=== PATIENT | female | born 1960 | race Caucasian/White ===

== ENCOUNTER 2020-07-24 10:27 | Observation (INO) | payer MEDICARE ==
[~2020-07-24] VITALS: Ht 162.6 cm; Wt 85.0 kg
--- NOTE | 2020-07-24 10:33 | NUR ---
TO ROOM 13 FOR TRIAGE
--- NOTE | 2020-07-24 11:19 | NUR ---
PATIENT RESTYING POC REVIEWED, CALL MC IN REACH
--- NOTE | 2020-07-24 11:20 | NUR ---
PATIENT AWARE OF NEED FOR URINE SAMPLE. UNABLE TO VOID AT THIS TIME.
[2020-07-24 11:21] LABS: HEMATOCRIT 43.4 % (37.0-47.0); HEMOGLOBIN 14.6 g/dl (12.0-16.0); IMMATURE GRANULOCYTES 0.4 % (0.0-5.0); MEAN CELL VOLUME 88.2 fL CALC (80.0-100.0); MEAN CORPUSCULAR HGB 29.7 pG CALC (26.0-32.0); MEAN CORPUSCULAR HGB CONC 33.6 g/dL CAL (32.0-36.0); NEUT# 7.35 thou/uL (2.00-7.15); RED BLOOD COUNT 4.92 mill/uL (4.20-5.60); RED CELL DISTRI WIDTH 12.9 % (11.5-15.5)
[2020-07-24 11:29] LABS: ALBUMIN 5.4 g/dL (3.2-5.0); ALKALINE PHOSPHATASE 103 u/l (38-126); ANION GAP 19 (6-22 (CALC)); BUN 24 mg/dL (8-23); BUN/CREATININE RATIO 23 (12-20 (CALC)); CARBON DIOXIDE 21 mmol/l (22-30); CHLORIDE 101 mmol/l (95-108); CREATININE 1.1 mg/dL (0.5-1.0); GFR 50 ML/MIN (>=60 (CALC)); GFR FOR AFR.AMER. > 60 ML/MIN (>=60 (CALC)); LIPASE 52 u/l (23-300); POTASSIUM 4.3 mmol/l (3.5-5.1); SGOT/AST 32 u/l (9-36); SODIUM 136 mmol/l (137-146)
[2020-07-24 11:33] LABS: BILIRUBIN, TOTAL 0.7 mg/dL (0.0-1.4); TOTAL PROTEIN 9.5 g/dL (6.3-8.2)
--- NOTE | 2020-07-24 11:45 | NUR ---
PATIENT STATES SHE IS FEELING BETTER. TO CT VIA STRETCHER.
[2020-07-24] MEDS ORDERED: LOSARTAN POTASS25 MG PO (11:48)
[2020-07-24 12:00] LABS: ACT PARTIAL THROMBO TIME 25.6 SECONDS (20.0-32.5); PROTHROMBIN TIME 10.5 SECONDS (9.0-12.5)
--- NOTE | 2020-07-24 12:35 | NUR ---
TO BR WITH ASSIST.
[2020-07-24 13:06] LABS: URINE BLOOD DIPSTICK NEGATIVE (NEGATIVE); URINE GLUCOSE - DIPSTICK NEGATIVE (NEGATIVE); URINE KETONE 15 mg/dL (NEGATIVE); URINE LEUK ESTERASE NEGATIVE (NEGATIVE); URINE NITRITE - DIPSTICK NEGATIVE (Negative); URINE PH 5.5 (4.5-8.0); URINE PROTEIN - DIPSTICK 100 mg/dL (NEG-TRACE); URINE UROBILINOGEN - DIPSTICK 0.2 E.U./dL (0.2)
[2020-07-24 13:07] LABS: URINE BILIRUBIN - DIPSTICK MODERATE (NEGATIVE)
[2020-07-24 13:08] LABS: URINE COLOR DK. YELLOW; URINE EPITHELIAL CELLS FEW EPI/hpf (0-FEW); URINE MUCUS MODERATE hpf (NONE-FEW)
--- NOTE | 2020-07-24 14:42 | NUR ---
DR TO BEDSIDE TO DISCUSS FINDINGS AND PLAN TO ADMIT.
--- NOTE | 2020-07-24 15:32 | NUR ---
PATIENT AWARE OF NEED TO BE ADMITTED. OPPORTUNITY FOR QUESTIONS.
--- NOTE | 2020-07-24 15:55 | NUR ---
REPORT REC FROM Tasia WANG RN
--- NOTE | 2020-07-24 15:58 | NUR ---
REPORT CALLED TO ANJUM GRIDER IN SBAR FORMAT.
[2020-07-24 16:04] VITALS: BP 141/63
--- NOTE | 2020-07-24 16:10 | NUR ---
TRANSFERRED SAFELY TO M/S VIA WC TO ROOM 277. IV INTACT.
--- NOTE | 2020-07-24 17:31 | NUR ---
INFORMED CONSENT FOR LAPAROSCOPIC CHOLECYSTECTOMY OBTAINED. PT VERBALIZED UNDERSTANDING. IVF @ 100 ML/HR TO RH #20 INITIATED. PT GIVEN MORPHINE 2 MG IV FOR ABD PAIN 01/05. CALL LIGHT LEFT WITHIN REACH.
--- NOTE | 2020-07-24 19:20 | NUR ---
PT IN BED WITH LIGHTS AND TV ON. REPORTS FEELING SLIGHTLY NAUSEOUS, BUT REPORTS THAT PAIN MEDICATION HELPED "FOR THE MOST PART." I OFFERED HER JUICE, BROTH AND EXPLAINED DIETS TO HER, SHE VERBALIZED UNDERSTANDING THAT SHE WILL GO NPO AT MIDNIGHT TO PREP FOR MORNING SURGERY. SHE DENIED WANTING ANYTHING TO EAT OR DRINK OTHER THAN WATER AT THIS TIME. I ENCOURAGED HER TO CALL IF SHE CHANGED HER MIND OR ANY OTHER NEEDS ARISE. WILL PLACE CALL FOR ANTI-NAUSEA MED ORDER TO PHYSICIAN.
--- NOTE | 2020-07-24 20:17 | NUR ---
IVF ADMINISTERED AT THIS TIME AND ASSESSMENT COMPLETED. V/S ASSESSED AT THIS TIME. CALL LIGHT AT SIDE AND PT INSTRUCTED TO CALL NEEDS ARISE.
[2020-07-24 21:48] VITALS: BP 107/68
--- NOTE | 2020-07-24 21:50 | NUR ---
ANGELES IN OR CALLED TO CHECK TO DISCUSS POSSIBILITY OF THE PT HAVING SURGERY TONIGHT. I TALKED WITH THE PT, SHE HAS ONLY BEEN DRINKING WATER AND LAST DRINK WAS APPROX.+-1HR PRIOR ACCORDING TO THE PT. I ASKED IF SHE WANTED TO HAVE THE SURGERY TONIGHT OR WAIT UNTIL SCHEDULED TIME IN THE MORNING, SHE REPLIED, "THE EARLIER THE BETTER." I INFORMED ANGELES OF THIS TIMEING/DIET INTAKE. HE STATED THAT THEY WOULD BE PROCEEDING WITH SURGERY IN APPROX 1HR. PT HAS BEEN INFORMED.
--- NOTE | 2020-07-24 22:12 | NUR ---
DR. RAJPUT IN TO SEE PT REGARDING PENDING SURGERY.
--- NOTE | 2020-07-24 22:17 | NUR ---
PT INFORMED THAT [employer] HAS APPROVED 1X FAMILY MEMBER TO SIT IN LOBBY OR WAITING ROOM DURING SURGERY IF SHE WANTED. SHE STATED THAT SHE HAS SPOKEN WITH HER AND THAT HE WILL BE STAYING HOME. I OFFERED TO CALL HIM AFTER SHE IS OUT OF SURGERY FOR HER, SHE AGREED AND GAVE ME HIS NAME AND NUMBER: SHRUTHI: [phone]
--- NOTE | 2020-07-24 22:28 | NUR ---
PT OFF MED SURG UNIT VIA STRETCHER ACCOMPANIED BY OR NURSE.
[2020-07-25] VITALS (8 sets, daily range): BP systolic 132–165; BP diastolic 72–89
--- NOTE | 2020-07-25 01:07 | NUR ---
PT ARRIVED TO MED SURG UNIT VIA STRETCHER ACCOMPANIED BY OR NURSE SANCHEZ. PT APPEARS TO BE IN STABLE CONDITION. REPORT RECIEVED AT THIS TIME. SCD'S PLACED, V/S ASSESSED STABLE.
--- NOTE | 2020-07-25 01:15 | NUR ---
PT SETTLED INTO THE BED, NO S/O DISTRESS NOTED. V/S ARE BEING ASSESSED Q15 MIN FOR THE FIRST HOUR PHYSICIAN ORDERS PROVIDE. PT ASKING FOR ICE CHIPS AT THIS TIME/PROVIDED.
--- NOTE | 2020-07-25 01:20 | NUR ---
ATTEMPTED TO CALL OF PT TO NOTIFY THAT SHE IS OUT OF SURGERY AND HAS RETURNED TO THE MED SURG UNIT IN STABLE AND GOOD CONDITION. I DID NOT RECEIVE AN ANSWER AND WAS UNABLE TO LEAVE A VOICEMAIL AT THIS TIME.
--- NOTE | 2020-07-25 02:00 | NUR ---
PT'S CALLED TO CHECK ON HER, I INFORMED HIM OF HER CONDITION PER PT'S REQUEST.
--- NOTE | 2020-07-25 02:14 | NUR ---
PT MEDICATED ORDERS PROVIDE FOR PAIN 5/10 ON PAIN SCALE. PT UP TO BSC AND BACK TO BED, NO DIFFICULTIES VOIDING. IVF RUNNING @125 TO 20 IN LAC/PATENT AND HEALTHY. ICE CHIPS AT BEDSIDE. PT DENIES NAUSEA AT THIS TIME. ENCOURAGED HER TO CALL NEEDS ARISE. CALL LIGHT AT SIDE.
--- NOTE | 2020-07-25 04:46 | NUR ---
PT SLEEPING SOUNDLY. SCD'S ARE ON, IVF RUNNING TO LAC/SITE APPEARS HEALTHY. NO S/O DISTRESS NOTED.
--- NOTE | 2020-07-25 06:10 | NUR ---
PT WAS SLEEPING, AWOKE TO MY VOICE. MEDICATED ORDERS PROVIDE. INCISIONS CDI, REPORTS PAIN MORE IN HER BACK FROM LAYING IN BED FOR A WEEK 4/10 ON PAIN SCALE.
--- NOTE | 2020-07-25 08:00 | NUR ---
PATIENT AWAKE AND ALERT STATES SHE FEELS WELL WITH MINIMAL PAIN
[2020-07-25 09:58] LABS: IMMATURE GRANULOCYTES 0.3 % (0.0-5.0); MEAN CELL VOLUME 91.3 fL CALC (80.0-100.0); MEAN CORPUSCULAR HGB 29.9 pG CALC (26.0-32.0); MEAN CORPUSCULAR HGB CONC 32.8 g/dL CAL (32.0-36.0); NEUT# 9.69 thou/uL (2.00-7.15); RED BLOOD COUNT 3.91 mill/uL (4.20-5.60); RED CELL DISTRI WIDTH 12.8 % (11.5-15.5)
[2020-07-25 10:01] LABS: HEMATOCRIT 35.7 % (37.0-47.0); HEMOGLOBIN 11.7 g/dl (12.0-16.0)
[2020-07-25 10:15] LABS: ALBUMIN 4.4 g/dL (3.2-5.0); ALKALINE PHOSPHATASE 73 u/l (38-126); ANION GAP 14 (6-22 (CALC)); BILIRUBIN, TOTAL 0.5 mg/dL (0.0-1.4); BUN 19 mg/dL (8-23); BUN/CREATININE RATIO 19 (12-20 (CALC)); CARBON DIOXIDE 19 mmol/l (22-30); CHLORIDE 105 mmol/l (95-108); GFR 56 ML/MIN (>=60 (CALC)); GFR FOR AFR.AMER. > 60 ML/MIN (>=60 (CALC)); POTASSIUM 4.9 mmol/l (3.5-5.1); PROTHROMBIN TIME 10.3 SECONDS (9.0-12.5); SGOT/AST 52 u/l (9-36); SODIUM 134 mmol/l (137-146)
[2020-07-25 10:17] LABS: TOTAL PROTEIN 7.4 g/dL (6.3-8.2)
--- NOTE | 2020-07-25 10:43 | NUR ---
DR RAJPUT GAVE PERMISSIN FOR PATIENT TO DISCHARGE.
--- NOTE | 2020-07-25 11:40 | NUR ---
PATIENT DISCHARGED TO HOME. LEFT VIA WHEELCHAIR THROUGH THE ER. PICKED HER UP. DISCHARGE, SCRIPT AND FOLLOW UP INSTRUCTIONS GIVEN
== END 2020-07-25 12:05 | disposition home or self-care (01) ==
LOC: ED 10:27 → ED-I 14:20 → ED 14:31 → MS2 14:33
PROVIDERS: Student in an Organized Health Care Education/Training Program; ADMIT Internal Medicine; ATTEND Surgery
PROC: 0FT44ZZ Resection of Gallbladder, Percutaneous Endoscopic Approach (ICD-10-PCS; principal; 2020-07-24)
DX: K80.12 Calculus of gallbladder with acute and chronic cholecystitis without obstruction (principal); I10 Essential (primary) hypertension; M79.7 Fibromyalgia; Z20.822 Contact with and (suspected) exposure to COVID-19
CPT/HCPCS: J0131; J1100; Q9967

== ENCOUNTER 2020-08-28 | Emergency (ER) | payer MEDICARE ==
[~2020-08-28] MED LIST: LOSARTAN POTASS25 MG PO
[2020-08-28 13:32] LABS: IMMATURE GRANULOCYTES 0.3 % (0.0-5.0); MEAN CELL VOLUME 91.3 fL CALC (80.0-100.0); MEAN CORPUSCULAR HGB 29.4 pG CALC (26.0-32.0); MEAN CORPUSCULAR HGB CONC 32.2 g/dL CAL (32.0-36.0); NEUT# 7.88 thou/uL (2.00-7.15); RED BLOOD COUNT 4.69 mill/uL (4.20-5.60); RED CELL DISTRI WIDTH 13.1 % (11.5-15.5)
[2020-08-28 13:36] LABS: ALKALINE PHOSPHATASE 104 u/l (38-126); AMYLASE 71 u/l (30-110); ANION GAP 19 (6-22 (CALC)); BILIRUBIN, TOTAL 0.7 mg/dL (0.0-1.4); BUN 15 mg/dL (8-23); BUN/CREATININE RATIO 16 (12-20 (CALC)); CARBON DIOXIDE 22 mmol/l (22-30); CHLORIDE 99 mmol/l (95-108); GFR 56 ML/MIN (>=60 (CALC)); GFR FOR AFR.AMER. > 60 ML/MIN (>=60 (CALC)); LIPASE 50 u/l (23-300); SGOT/AST 30 u/l (9-36); SODIUM 136 mmol/l (137-146)
[2020-08-28 13:46] LABS: MYOGLOBIN 25 ng/mL (0 - 62)
[2020-08-28 13:51] LABS: ALBUMIN 5.3 g/dL (3.2-5.0); HEMATOCRIT 42.8 % (37.0-47.0); HEMOGLOBIN 13.8 g/dl (12.0-16.0); TOTAL PROTEIN 9.4 g/dL (6.3-8.2)
[2020-08-28 14:42] LABS: URINE BILIRUBIN - DIPSTICK NEGATIVE (NEGATIVE); URINE BLOOD DIPSTICK NEGATIVE (NEGATIVE); URINE COLOR YELLOW; URINE GLUCOSE - DIPSTICK NEGATIVE (NEGATIVE); URINE KETONE 15 mg/dL (NEGATIVE); URINE LEUK ESTERASE NEGATIVE (NEGATIVE); URINE PH 5.5 (4.5-8.0); URINE PROTEIN - DIPSTICK NEGATIVE (NEG-TRACE); URINE UROBILINOGEN - DIPSTICK 0.2 E.U./dL (0.2)
[2020-08-28 14:46] LABS: URINE NITRITE - DIPSTICK NEGATIVE (Negative)
[2020-08-28] MEDS ORDERED: ONDANSETRON4 MG PO (18:26)
[2020-08-28] MEDS ORDERED: PREVACID30 M3 PO (18:26)
[2020-08-28] MEDS ORDERED: ULTRAM50 M1 PO (18:26)
== END 2020-08-28 18:52 | disposition home or self-care (01) ==
PROVIDERS: Emergency Medicine
DX: K85.90 Acute pancreatitis without necrosis or infection, unspecified (principal); I10 Essential (primary) hypertension; M79.7 Fibromyalgia; Z90.49 Acquired absence of other specified parts of digestive tract
CPT/HCPCS: Q9967; S0164